=== PATIENT | male | born 1970 | race Caucasian/White ===

== ENCOUNTER 2016-04-18 07:11 | Emergency (ER) | payer OTHER ==
[~2016-04-18] VITALS: Ht 180.3 cm; Wt 95.0 kg
[~2016-04-18 07:11] MED LIST changes: -AMOX500C5 PO; -PRD10T PO; -PRD5T PO; -PRED10TA22 PO; -PRM25T PO
[2016-04-18 07:14] VITALS: BP_DIAS 77
[2016-04-18] MEDS ORDERED: SODIUM CHLORIDE FLUSH 3 ML SYR IV PRN (07:25)
[2016-04-18] MEDS ORDERED: PRD5T PO (07:25)
[2016-04-18] MEDS ORDERED: ONDANSETRON 4 MG (ZOFRAN) ORAL DISSOLVE TAB PO ONE (07:25)
[2016-04-18] MEDS ORDERED: SODIUM CHLORIDE FLUSH 10 ML SYR IV PRN (07:25)
[2016-04-18] MEDS ORDERED: PRD10T PO (07:25)
[2016-04-18 07:43] LABS: MEAN CORPUSCULAR HEMOGLOBIN 29.3 PG (26.0-34.0); MEAN CORPUSCULAR HGB CONC 32.7 g/dL (31.0-37.0); MEAN CORPUSCULAR VOLUME 89 FL (80-100); MEAN PLATELET VOLUME 10.6 FL (6.0-9.5); PLATELET COUNT 401 10^3uL (150-450); WHITE BLOOD COUNT 21.37 10^3uL (4.0-11.0)
[2016-04-18 07:51] LABS: BAND NEUTROPHILS % 2 % (0-6); EOSINOPHILS % 0 % (0-4); LYMPHOCYTES # 1.3 #; MONOCYTES # 0.6 #; MONOCYTES % 3 % (3-11); RBC MORPH NORMAL (NORMAL); SEGMENTED NEUTROPHILS % 89 % (51-67); TOTAL CELLS COUNTED 100
[2016-04-18 07:54] LABS: ALBUMIN 4.4 g/dL (3.4-5.0); ANION GAP 18.2 MEQ/L (3-15); CALCULATED IONIZED CALCIUM 3.9 mg/dL (3.8-4.6); TOTAL PROTEIN 7.9 g/dL (6.4-8.5)
[2016-04-18] MEDS ORDERED: PROMETHAZINE HCL INJ 25 MG in SODIUM CHLORIDE 25 ML IV ONE (08:05)
--- NOTE | 2016-04-18 08:30 | NUR ---
PT HAS HAD 2 DIAHRREA STOOLS SINCE ARRIVAL & STATES HE DOES NOT HAVE TO URINATE BUT NOT SURE IF HE DID W/STOOLS. DR FRANKLIN NOTIFIED. CL
--- NOTE | 2016-04-18 09:12 | NUR ---
PT MARELY HE IS COLD DESPITE HAVING A BLANKET ON ALREADY. CL
--- NOTE | 2016-04-18 09:59 | NUR ---
PT SLEEPING. CL
--- NOTE | 2016-04-18 10:00 | NUR ---
PT CONTINUOUSLY TAKES O2 SAT OFF. REPEATEDLY REPLACED. CL
[2016-04-18] MEDS ORDERED: METOCLOPRAMIDE 10 MG/2 ML (REGLAN) VIAL IV STA (10:34)
[2016-04-18] MEDS ORDERED: diphenhydrAMINE 50 MG/ML INJ (BENADRYL) IV SCH (10:35)
--- NOTE | 2016-04-18 11:03 | NUR ---
PT AWAKENS WHEN THIS RN ENTERS THE ROOM & WHEN ASKS DENIES ANY PAIN AT THIS TIME. CL
--- NOTE | 2016-04-18 11:31 | NUR ---
PT SLEEPING THROUGH [facility] & WITHOUT TWITCHING. DR FRANKLIN NOTIFIED &HITESH MONTERROSO FOR NOW CL
[2016-04-18] MEDS ORDERED: PRM25T PO (12:19)
--- NOTE | 2016-04-18 12:28 | NUR ---
PT CALLED TO INFORM OF PT DISMISSAL. SHE WILL SEND A TAXI TO [facility]. CL
--- NOTE | 2016-04-18 12:30 | NUR ---
PT DISCHARGE NOT NEEDING TO VOID YET. DR FRANKLIN CANCELS ORDER FOR UA. CL
[2016-04-18 12:53] VITALS: BP_SYST 129
[2016-05-30] MEDS ORDERED: AMOX500C5 PO (09:01)
[2016-05-30] MEDS ORDERED: PRED10TA22 PO (09:01)
== END 2016-04-18 12:40 | disposition home or self-care (01) ==
LOC: EDUNIT# 07:11 → ED 07:14
DX: R11.2 Nausea with vomiting, unspecified (principal); R19.7 Diarrhea, unspecified; R10.84 Generalized abdominal pain
CPT/HCPCS: 36415; 80053; 83690; 85025; 96361; 96365; 96375; 99284; J2550; J2765; J7030; 99283

== ENCOUNTER → 2016-04-18 | Outpatient (CLI) | payer OTHER ==
[~2016-04-18] MED LIST: AMOX500C5 PO; HYDR-3811 PO; PRD10T PO; PRD20T PO; PRD5T PO; PRED10TA PO; PRED10TA22 PO; PRED20TA PO; PRED5TAB PO; PRM25T PO
== END ==
LOC: EMS 06:55
PROVIDERS: ATTEND Emergency Medicine
DX: R11.2 Nausea with vomiting, unspecified (principal); R19.7 Diarrhea, unspecified

== ENCOUNTER 2016-05-30 08:28 | Emergency (ER) | payer OTHER ==
[~2016-05-30] VITALS: Ht 180.3 cm; Wt 98.4 kg
[2016-05-30] MEDS ORDERED: DEXAMETHASONE 10 MG/ML (DECADRON) VIAL IM ONE (09:20)
[2016-05-30 09:49] VITALS: BP 134/84
== END 2016-05-30 09:45 | disposition home or self-care (01) ==
LOC: ED 08:30
DX: J02.9 Acute pharyngitis, unspecified (principal); J40 Bronchitis, not specified as acute or chronic
CPT/HCPCS: 96372; 99282; J1100; 99283

== ENCOUNTER → 2016-06-25 | Emergency (ER) | payer OTHER, MEDICAID ==
[~2016-06-25] VITALS: Ht 180.3 cm; Wt 101.0 kg
[~2016-06-25] MED LIST changes: +BACITRACIN OINTMENT 0.9 GM PACKET TOP ONE; -HYDR-3811 PO; +LIDOCAINE 1% (XYLOCAINE) 20 ML VIAL INJ ONE; -PRD20T PO; -PRED10TA PO; -PRED20TA PO; -PRED5TAB PO; +TETANUS, DIPTHERIA, PERTUSSIS (ADACELL) VACCINE 0.5 ML VIAL IM ONE
[2016-06-25 08:20] VITALS: BP 153/107
== END | disposition home or self-care (01) ==
LOC: ED 08:11
DX: S90.851A Superficial foreign body, right foot, initial encounter (principal); W45.8XXA Other foreign body or object entering through skin, initial encounter; L53.8 Other specified erythematous conditions
CPT/HCPCS: 28190; 90471; 90715; 99283